=== PATIENT | male | born 1965 | race Two or more races ===

== ENCOUNTER 2023-12-01 13:00 | Emergency (ER) | payer OTHER ==
[~2023-12-01] VITALS: Ht 175.3 cm; Wt 80.0 kg
[2023-12-01 13:02] VITALS: BP 141/87; PULSE 72; RESP 18; TEMP 98.4
[2023-12-01] MEDS: OxyCODONE HCL/ACETAMINOPHEN 5-325 MG TABLET PO ONE (15:03)
[2023-12-01] MEDS: PERTUSS(ACELL),DIPH,TET/PF 0.5 ML SYRINGE [ADULT] IM. ONE (15:03)
[2023-12-01] MEDS ORDERED: OXYC-38 PO (16:30)
[2023-12-01] MEDS ORDERED: IBUP-2492 PO (16:31)
[2023-12-02] MEDS ORDERED: HYDR-4072 PO (21:02)
== END 2023-12-01 16:51 | disposition home or self-care (01) ==
LOC: EMS 13:00
DX: S83.92XA Sprain of unspecified site of left knee, initial encounter (principal); W19.XXXA Unspecified fall, initial encounter; Y93.89 Activity, other specified; Y92.89 Other specified places as the place of occurrence of the external cause; Y99.8 Other external cause status
CPT/HCPCS: 29505; 90471; 90715; 99283

== ENCOUNTER 2023-12-02 16:22 | Emergency (ER) | payer OTHER ==
[~2023-12-02] VITALS: Ht 175.3 cm; Wt 75.0 kg
[~2023-12-02 16:22] MED LIST: IBUP-2492 PO
[2023-12-02 16:32] VITALS: BP 151/91; PULSE 74; RESP 18; TEMP 98.1
[2023-12-02] MEDS ORDERED: HYDR-4072 PO (21:02)
== END 2023-12-02 21:39 | disposition home or self-care (01) ==
LOC: EMS 16:22
DX: S80.211D Abrasion, right knee, subsequent encounter (principal); X58.XXXD Exposure to other specified factors, subsequent encounter
CPT/HCPCS: 99283; Z7502